=== PATIENT | female | born 1985 ===

== ENCOUNTER → 2017-11-18 | Outpatient (CLI) | payer OTHER ==
[2017-11-18 13:18] LABS: BASO % 0.2 %; BASO ABS # 0.01 K/uL (0-0.2); EOS % 0.5 %; EOS ABS # 0.03 K/uL (0-0.5); HEMATOCRIT 36.3 % (37-47); HEMOGLOBIN 12.3 g/dL (12.0-16.0); IG# 0.02 K/uL (0.00-0.02); LYMPH % 18.2 %; MEAN CELL VOLUME 87.9 fL (80-100); MEAN CORPUSCULAR HEMOGLOBIN 29.8 pg (25-34); MEAN CORPUSCULAR HGB CONC 33.9 g/dl (32-36); MEAN PLATELET VOLUME 9.7 fL (7.4-10.4); MONO % 7.7 %; MONO ABS # 0.51 K/uL (0.11-0.59); NEUT % 73.1 %; NEUT ABS # 4.84 K/uL (1.4-6.5); PLATELET COUNT 267 K/uL (130-400); RED CELL DISTRIBUTION WIDTH CV 13.4 % (11.5-14.5); RED CELL DISTRIBUTION WIDTH SD 42.9 fL (36.4-46.3); WHITE BLOOD COUNT 6.61 K/uL (4.8-10.8)
== END | disposition home or self-care (01) ==
LOC: C.LAB1850 10:40
PROVIDERS: ATTEND Obstetrics & Gynecology
DX: Z34.01 Encounter for supervision of normal first pregnancy, first trimester (principal)

== ENCOUNTER 2018-05-24 03:41 | Inpatient (IN) ==
[2018-05-24] MEDS ORDERED: LACTATED RINGER'S 1,000 ML IV PRN ×5 (06:16→10:46)
[2018-05-24 06:32] LABS: Hematocrit (blood only) 37.8 % (37-47); Hemoglobin 12.7 g/dL (12.0-16.0); Mean Corpuscular Volume 89.4 fL (80-100); Mean Platelet Volume 10.3 fL (7.4-10.4); Platelet Count 203 K/uL (130-400); RDW Coefficient of Variation 14.1 % (11.5-14.5); RDW Standard Deviation 46.2 fL (36.4-46.3); Red Blood Count 4.23 M/uL (4.2-5.4); White Blood Count 9.46 K/uL (4.8-10.8)
[2018-05-24 06:33] LABS: Mean Corpuscular Hgb Conc 33.6 g/dL (32-36)
[2018-05-24] MEDS ORDERED: OXYTOCIN 30 UNITS/500 ML BAG IV PRN ×2 (07:00→18:13)
--- NOTE | 2018-05-24 07:05 | History & Physical Report ---
Date of Service May 24, 2018 Assessment & Plan (1) Premature rupture of membranes: - heart rate tracing reassuring -Patient observed for 4 hours with no regular contractions -We will begin Pitocin per induction protocol -All questions answered to the patient. -Anticipate vaginal delivery History of Present Illness Chief Complaint: Rupture of membranes Primary Care Provider: NO PCP The patient is a 32-year-old 1 para 0 with an EDC of 25 May by dates and first trimester ultrasound, who is admitted at 39+ weeks gestational age with spontaneous rupture membranes. Patient states membranes ruptured approximately 0300 hrs., she described the fluid is clear. She has been having some mild irregular contractions since the rupture. The patient has had a benign course. Her blood type is O+, antibody negative, rubella immune, hepatitis B negative, she had negative cell free DNA screening, she had a normal 1 hour Glucola at 16 weeks, an elevated value at 28 weeks with a normal 2-hour glucose tolerance test, and a negative third trimester beta strep culture. Allergies Allergy/AdvReac Type Severity Reaction Status Date / Time No Known Allergies Allergy Verified 05/24/18 06:18 Home Medications Home Medications Medication Instructions Recorded Confirmed Type 1 cap PO DAILY 05/24/18 05/24/18 History ferrous sulfate [iron] 325 mg PO DAILY 05/24/18 05/24/18 History Patient History Medical History No known health problems Surgical History No history of previous surgery Physical Exam Vital Signs (Past 24 Hours): Last Vital Signs Temp 37.1 C 05/24/18 05:00 Resp 18 05/24/18 05:00 Constitutional: WD/WN, vitals as above Respiratory: Auscultation: lungs clear to auscultation bilaterally Cardiovascular: RRR, no murmur, no edema Extremities: no calf tenderness Gastrointestinal (Abdomen): Gravid, vertex, positive heart tones, estima valeria weight of 6-1/2 pounds Genitourinary: Manual OB Exam: + cervical dilation 5 cm, + cervical effacement 80%, + station -2 and + amniotic fluid clear OB Exam Monitor Tracing: + external FHT monitor used and + category I
[2018-05-24] MEDS: LACTATED RINGER'S 1,000 ML IV SCH ×2 (07:29→10:19)
[2018-05-24] MEDS ORDERED: fentaNYL citrate 100 MCG/2 ML VIAL ONE (09:35)
[2018-05-24] MEDS ORDERED: ePHEDrine sulfate 50 MG/ML AMP ONE (09:35)
[2018-05-24] MEDS ORDERED: BUPIVACAINE 0.25% 30 ML VIAL ONE (09:35)
[2018-05-24] MEDS ORDERED: fentaNYL 2MCG/ML ROPIV 1.25MG/ML 100 ML BAG EPI ONE (09:36)
[2018-05-24] MEDS ORDERED: ePHEDrine sulfate 50 MG/ML AMP IV PRN (10:46)
[2018-05-24] MEDS ORDERED: NALOXONE HCL 0.4 MG/1 ML VIAL/CARP IV PRN (10:46)
[2018-05-24] MEDS ORDERED: fentaNYL 2MCG/ML ROPIV 1.25MG/ML 100 ML BAG EPI PRN (10:46)
[2018-05-24] MEDS ORDERED: ONDANSETRON INJ 2 MG/ML 2 ML VIAL IV PRN (10:46)
--- NOTE | 2018-05-24 10:53 | Anesthesiology Consultation ---
Date of Service May 24, 2018 Assessment & Plan (1) Encounter for pre-operative examination: Chart Review Chart Review: Acceptable Risk for Surgery and Acceptable Risk for Labor Epidural History Height/Weight Height: 5 ft 2 in Weight: 68 kg Allergies Allergy/AdvReac Type Severity Reaction Status Date / Time No Known Allergies Allergy Verified 05/24/18 06:18 Medications Home Medications Medication Instructions Recorded Confirmed Last Taken 1 cap PO DAILY 05/24/18 05/24/18 05/23/18 08:00 ferrous sulfate [iron] 325 mg PO DAILY 05/24/18 05/24/18 05/23/18 08:00 Active Medications Generic Name Dose Route Start Last Admin Trade Name Freq PRN Reason Stop Dose Admin Lactated Ringer's 1,000 mls @ 125 mls/hr 05/24/18 06:30 05/24/18 09:30 Lr IV 05/26/18 06:29 999 mls/hr .Q8H RAFFY Infusion Oxytocin 30 units in 500 mls @ 6 mls/hr 05/24/18 07:00 05/24/18 08:56 Pitocin IV 05/26/18 06:59 0.36 units/hr .Q24H PRN 6 mls/hr Labor Induction/Augmentation Titration Protocol 0.36 UNITS/HR Past Medical History Medical History Anxiety Past Surgical History Surgical History No history of previous surgery Social History Hx Alcohol Use: No Physical Exam Vital Signs Last Vital Signs Temp 36.6 C 05/24/18 09:00 Pulse 100 H 05/24/18 10:04 Resp 20 05/24/18 09:30 BP 123/58 L 05/24/18 10:01 Pulse Ox 98 05/24/18 10:04 Testing Laboratory Results 05/24/18 05:30
--- NOTE | 2018-05-24 10:53 | Anesthesiology Consultation ---
Date of Service May 24, 2018 Assessment & Plan (1) Encounter for pre-operative examination: Chart Review Chart Review: Acceptable Risk for Surgery and Acceptable Risk for Labor Epidural History Height/Weight Height: 5 ft 2 in Weight: 68 kg Allergies Allergy/AdvReac Type Severity Reaction Status Date / Time No Known Allergies Allergy Verified 05/24/18 06:18 Medications Home Medications Medication Instructions Recorded Confirmed Last Taken 1 cap PO DAILY 05/24/18 05/24/18 05/23/18 08:00 ferrous sulfate [iron] 325 mg PO DAILY 05/24/18 05/24/18 05/23/18 08:00 Active Medications Generic Name Dose Route Start Last Admin Trade Name Freq PRN Reason Stop Dose Admin Lactated Ringer's 1,000 mls @ 125 mls/hr 05/24/18 06:30 05/24/18 09:30 Lr IV 05/26/18 06:29 999 mls/hr .Q8H RAFFY Infusion Oxytocin 30 units in 500 mls @ 6 mls/hr 05/24/18 07:00 05/24/18 08:56 Pitocin IV 05/26/18 06:59 0.36 units/hr .Q24H PRN 6 mls/hr Labor Induction/Augmentation Titration Protocol 0.36 UNITS/HR Past Medical History Medical History Anxiety Past Surgical History Surgical History No history of previous surgery Social History Hx Alcohol Use: No Physical Exam Vital Signs Last Vital Signs Temp 36.6 C 05/24/18 09:00 Pulse 91 H 05/24/18 08:56 Resp 20 05/24/18 09:30 BP 120/69 05/24/18 08:56 Testing Laboratory Results 05/24/18 05:30
--- NOTE | 2018-05-24 10:54 | Communication Note ---
Date of Service: May 24, 2018 Brief visit with patient. Anesthesiologist was in room and plan for epidural being made. Patient is standing at bedside breathing through contraction. FHT Cat 1 and toco Q2min. Will return to reassess cervix and plan further care once patient is comfortable.
--- NOTE | 2018-05-24 11:02 | Anesthesiology Consultation ---
Date of Service May 24, 2018 Assessment & Plan (1) Encounter for pre-operative examination: Chart Review Chart Review: Acceptable Risk for Surgery and Acceptable Risk for Labor Epidural History Height/Weight Height: 5 ft 2 in Weight: 68 kg Allergies Allergy/AdvReac Type Severity Reaction Status Date / Time No Known Allergies Allergy Verified 05/24/18 06:18 Medications Home Medications Medication Instructions Recorded Confirmed Last Taken 1 cap PO DAILY 05/24/18 05/24/18 05/23/18 08:00 ferrous sulfate [iron] 325 mg PO DAILY 05/24/18 05/24/18 05/23/18 08:00 Active Medications Generic Name Dose Route Start Last Admin Trade Name Freq PRN Reason Stop Dose Admin Lactated Ringer's 1,000 mls @ 125 mls/hr 05/24/18 06:30 05/24/18 10:19 Lr IV 05/26/18 06:29 125 mls/hr .Q8H RAFFY Administration Oxytocin 30 units in 500 mls @ 6 mls/hr 05/24/18 07:00 05/24/18 08:56 Pitocin IV 05/26/18 06:59 0.36 units/hr .Q24H PRN 6 mls/hr Labor Induction/Augmentation Titration Protocol 0.36 UNITS/HR Past Medical History Medical History Anxiety Past Surgical History Surgical History No history of previous surgery Social History Hx Alcohol Use: No Physical Exam Vital Signs Last Vital Signs Temp 36.6 C 05/24/18 09:00 Pulse 101 H 05/24/18 10:40 Resp 20 05/24/18 09:30 BP 110/64 05/24/18 10:40 Pulse Ox 98 05/24/18 10:39 Testing Laboratory Results 05/24/18 05:30
--- NOTE | 2018-05-24 11:09 | Anesthesiology Consultation ---
Date of Service May 24, 2018 Assessment & Plan (1) Encounter for pre-operative examination: Chart Review Chart Review: Acceptable Risk for Surgery and Acceptable Risk for Labor Epidural ASA ASA2 Proposed Anesthesia Anesthesia Type: CSE NPO Last Intake of Fluids Comment: N/a Date Last Intake of Solids: 05/23/18 History Height/Weight Height: 5 ft 2 in Weight: 68 kg Allergies Allergy/AdvReac Type Severity Reaction Status Date / Time No Known Allergies Allergy Verified 05/24/18 06:18 Medications Home Medications Medication Instructions Recorded Confirmed Last Taken 1 cap PO DAILY 05/24/18 05/24/18 05/23/18 08:00 ferrous sulfate [iron] 325 mg PO DAILY 05/24/18 05/24/18 05/23/18 08:00 Active Medications Generic Name Dose Route Start Last Admin Trade Name Freq PRN Reason Stop Dose Admin Lactated Ringer's 1,000 mls @ 125 mls/hr 05/24/18 06:30 05/24/18 10:19 Lr IV 05/26/18 06:29 125 mls/hr .Q8H RAFFY Administration Oxytocin 30 units in 500 mls @ 6 mls/hr 05/24/18 07:00 05/24/18 08:56 Pitocin IV 05/26/18 06:59 0.36 units/hr .Q24H PRN 6 mls/hr Labor Induction/Augmentation Titration Protocol 0.36 UNITS/HR Past Medical History Medical History Anxiety Past Surgical History Surgical History No history of previous surgery Past Anesthesia History No Hx of Anesthesia Complications History of PONV No Motion Sickness Screening History of Motion Sickness: No Social History Smoking Status: Never smoker Hx Alcohol Use: No Hx Substance Use: No Exercise / Class Metabolic Activity III < 4 Walking/Shop/Light housework Review of Systems Respiratory: no problem reported Cardiovascular: no problem reported Physical Exam Vital Signs Last Vital Signs Temp 36.6 C 05/24/18 09:00 Pulse 82 05/24/18 10:45 Resp 20 05/24/18 09:30 BP 95/51 L 05/24/18 10:45 Pulse Ox 97 05/24/18 10:44 Neck normal visual inspection Respiratory normal respiratory effort Auscultation: lungs clear to auscultation bilaterally Cardiovascular Rate/Rhythm: regular rate and regular rhythm Testing Laboratory Results 05/24/18 05:30
--- NOTE | 2018-05-24 14:06 | Labor Progress Brief Note ---
Date of Service May 24, 2018 Subjective Comfortable with epidural. No urge to push. Assessment & Plan (1) Supervision of normal intrauterine in primigravida: Patient with PROM earlier this morning, and labor augmented with pitocin. Now complete dilation. FHT Cat 1. Bladder emptied for 400cc clear yellow during exam. Will allow labor down / onset of pelvic pressure and urge, then begin second stage. Trimester: third trimester Qualified Code(s): Z34.03 - Encounter for supervision of normal first , third trimester Physical Exam Vital Signs (Past 24 Hours): Last Vital Signs Temp 37.0 C 05/24/18 13:01 Pulse 74 05/24/18 14:02 Resp 18 05/24/18 13:00 BP 117/63 05/24/18 14:02 Pulse Ox 99 05/24/18 13:59 Physical Exam: /+1
--- NOTE | 2018-05-24 17:59 | Procedure Note ---
Vaginal Delivery Summary Date of Service May 24, 2018 Patient pushed to deliver a viable male in GISELA position with a compound L arm. Shoulders and remainder of baby delivered without any difficulty or delay. Infant immediately made respiratory effort and moved all four extremities. Cord was doubly clamped. FOB cut cord. Placenta then delivered s/i/3vC. L labia minora had a small tear which was reapproximated with 4-0 vicryl. Perineum, vagina and cervix were without lacerations. Lochia was minimal and fundus firm immediately after delivery.
[2018-05-24] MEDS ORDERED: SUPERCREAM 0.870% 15 GM JAR EXT PRN (18:13)
[2018-05-24] MEDS ORDERED: BENZOCAINE 20% AER SPR 82.5 GM CAN EXT PRN (18:13)
[2018-05-24] MEDS ORDERED: LACTATED RINGER'S 1,000 ML IV SCH (18:13)
[2018-05-24] MEDS ORDERED: ACETAMINOPHEN 325 MG TAB PO PRN (18:13)
[2018-05-24] MEDS ORDERED: HYDROCORTISONE ACETATE 25 MG SUPP PR PRN (18:13)
[2018-05-24] MEDS ORDERED: IBUPROFEN 600 MG TAB PO PRN (18:13)
[2018-05-24] MEDS ORDERED: BISACODYL 10 MG SUPP PR PRN (18:13)
[2018-05-24] MEDS ORDERED: DIPHTHERIA/TETANUS/PERTUSSIS 0.5 ML SYR/VIAL IM ONE (18:13)
[2018-05-24] MEDS ORDERED: OXYCODONE/ACETAMINOPHEN 5mg/325mg TAB PO PRN (18:13)
--- NOTE | 2018-05-24 19:01 | Anesthesia Procedure Note ---
Date of Service May 24, 2018 Anesthesia Post Epidural Note Vital Signs Vital Signs: Temp Pulse Resp BP Pulse Ox 36.8 C 94 H 18 97/54 L 99 05/24/18 17:00 05/24/18 18:39 05/24/18 18:40 05/24/18 18:39 05/24/18 17:39 Notes Mental Status: alert / awake / arousable and participated in evaluation Nausea / Vomiting: adequately controlled Pain: adequately controlled Airway Patency, RR, SpO2: stable & adequate BP & HR: stable & adequate Hydration State: stable & adequate Neuraxial Anesthesia: was administered and sensory block is resolving Anesthetic Complications: no major complications apparent Epidural: Removed without complications and With tip intact
[2018-05-24] MEDS: DOCUSATE SODIUM 100 MG CAP PO SCH (21:07)
[2018-05-25 06:15] LABS: Hematocrit (blood only) 34.4 % (37-47); Hemoglobin 11.3 g/dL (12.0-16.0); Mean Corpuscular Hgb Conc 32.8 g/dL (32-36); Mean Corpuscular Volume 89.4 fL (80-100); Mean Platelet Volume 9.8 fL (7.4-10.4); Platelet Count 184 K/uL (130-400); RDW Coefficient of Variation 14.2 % (11.5-14.5); RDW Standard Deviation 46.7 fL (36.4-46.3); Red Blood Count 3.85 M/uL (4.2-5.4); White Blood Count 14.47 K/uL (4.8-10.8)
--- NOTE | 2018-05-25 06:43 | Obstetrical Progress Note ---
Date of Service May 25, 2018 Assessment & Plan (1) Status post vaginal delivery: Patient is a 32 year old PPD 1 s/p -Vital signs: bp 90/60 is a tad low, she is asyx and her base line pressures seem low continue to monitor otherwise wnl T36.7, -Hemoglobin is 11.3 down from 12.7 on admission. no si/sx of anemia. -Pt is doing clinically well -Continue to encourage ambulation as tolerated, Monitor and control pain with motrin prn, Continue diet as tolerated. -Continue to support and encourage breast feeding -Routine care Supervising Physician Co-Signing Physician Notes I have examined the patient and agree with the resident note above. Subjective Patient swaddling baby with mom at the bedside this morning. Patient is tolerating her diet, ambulating well, passing gas and voiding, still no bm. Reports moderate lochia. Denies H/A, chest pain, palpitations and uti syx. No concerns at this time Physical Exam Vital Signs (Past 24 Hours): Last Vital Signs Temp 36.7 C 05/25/18 04:00 Pulse 88 05/25/18 04:00 Resp 16 05/25/18 04:00 BP 90/60 L 05/25/18 04:00 Pulse Ox 97 05/25/18 04:00 Constitutional: WD/WN, vitals as above Eyes: normal visual dumas by confrontation Respiratory: normal respiratory effort, lungs clear to auscultation Cardiovascular: RRR, no murmur, no edema Extremities: + pedal edema (1+); no calf tenderness Gastrointestinal (Abdomen): normal bowel sounds, soft, nontender, no hepatosplenomegaly Skin: no rashes, warm and dry Results & Data Laboratory Results 05/25/18 05/24/18 Range/Units 05:47 06:19 WBC 14.47 H (4.8-10.8) K/uL RBC 3.85 L (4.2-5.4) M/uL Hgb 11.3 L (12.0-16.0) g/dL Hct 34.4 L (37-47) % MCV 89.4 (80-100) fL MCH 29.4 (25-34) pg MCHC 32.8 (32-36) g/dL RDW Std Deviation 46.7 H (36.4-46.3) fL RDW Coeff of Evelin 14.2 (11.5-14.5) % Plt Count 184 (130-400) K/uL MPV 9.8 (7.4-10.4) fL Absolute Nucleated RBC 0.00 (0-0) K/uL Nucleated RBC % (auto) 0.0 % Amniotic Protein POS Medications Administered Current Inpatient Medications Acetaminophen (Tylenol) 650 mg PO Q6H PRN PRN Reason: Pain/IRWIN/Fever Stop: 06/23/18 18:12 Benzocaine (Dermoplast Pain Relieving [place]) 1 appln EXT PRN PRN PRN Reason: Perineal Discomfort Stop: 06/23/18 18:12 Last Admin: 05/24/18 20:17 Dose: 82.5 appln Documented by: Bisacodyl (Dulcolax) 5 mg PO 1999 [facility] Stop: 05/25/18 20:01 Bisacodyl (Dulcolax) 10 mg [place] DAILY PRN PRN Reason: No BM on 2nd post- day Stop: 06/23/18 18:12 Cocaine HCl (Supercream 0.870%) 1 gm EXT BID PRN PRN Reason: Hemorrhoidal Inflammation Stop: 06/07/18 18:12 Last Admin: 05/24/18 20:18 Dose: 1 tube Documented by: Docusate Sodium (Colace) 100 mg PO BID [facility] Stop: 06/23/18 20:59 Last Admin: 05/24/18 21:07 Dose: 100 mg Documented by: Hydrocortisone (Anusol Hc) 25 mg [place] BID PRN PRN Reason: Hemorrhoidal Inflammation Stop: 06/23/18 18:12 Lactated Ringer's (Lr) 1,000 mls @ 125 mls/hr IV .Q8H [facility] Stop: 06/23/18 18:12 Oxytocin (Pitocin) 30 units in 500 mls @ 333.333 mls/hr IV .Q1H30M PRN; Protocol PRN Reason: BLEEDING CONTROL Stop: 06/23/18 18:12 Ibuprofen (Motrin) 600 mg PO Q4H PRN PRN Reason: Pain/IRWIN/Cramping/Fever Stop: 06/23/18 18:12 Oxycodone/Acetaminophen (Percocet 5mg/325mg) 1 tab PO Q4H PRN PRN Reason: Pain not relieved by... Stop: 06/07/18 18:12 Prenat Multivit/Childcare Director/Iron/Folic Ac ( Vitamin) 1 tab PO QAM [facility] Stop: 06/24/18 08:59 Resident Activity Tracking Resident Involvement: Resident Care Provided Care Provided: Adult Hospital Medicine
[2018-05-25] MEDS: PRENATAL VITAMIN 1 TAB PO SCH (09:33)
[2018-05-25] MEDS: DOCUSATE SODIUM 100 MG CAP PO SCH ×2 (09:33→19:50)
[2018-05-25] MEDS ORDERED: BISACODYL 5 MG TABEC PO SCH (20:00)
--- NOTE | 2018-05-26 06:52 | Obstetrical Progress Note ---
Date of Service May 26, 2018 Assessment & Plan (1) Status post vaginal delivery: Patient is a 32 year old PPD 1 s/p -Vital signs WNL bp 109/67 T36.5 -Hemoglobin is 11.3 down from 12.7 on admission. no si/sx of anemia. -Pt is doing clinically well -Continue to encourage ambulation as tolerated, Monitor and control pain with motrin prn, Continue diet as tolerated. -Continue to support and encourage breast feeding -Counseled patient on discharge instructions including Vaginal bleeding, fevers, followup, lifting restrictions, breast feeding, vitamins, and nothing in the vagina for 6 weeks. Pt was agreeable -Plan for d/c today Supervising Physician Co-Signing Physician Notes Resident Physician Supervision Note: I interviewed and examined the patient. Discussed with Dr. Irvin Doan and agree with findings and plan as documented in the note. Any exceptions or clarifications are listed here: [None] Documented By: Babita Hummel MD, FACOG Subjective Patient just finished breast feeding baby this morning when I arrived, her mother was sleeping at the bedside. Pt is cocerned about the smell of her baby's flatus, I deferred to pediatrics. Patient continues to tolerate her diet, ambulating well, passing gas and voiding, still no bm. Reports decreasing lochia. Denies H/A, chest pain, palpitations and uti syx. No concerns at this time Physical Exam Vital Signs (Past 24 Hours): Last Vital Signs Temp 36.5 C 05/25/18 23:45 Pulse 83 05/25/18 23:45 Resp 16 05/25/18 23:45 BP 109/67 05/25/18 23:45 Pulse Ox 98 05/25/18 23:45 Constitutional: WD/WN, vitals as above Eyes: normal visual dumas by confrontation Respiratory: normal respiratory effort, lungs clear to auscultation Cardiovascular: RRR, no murmur, no edema Extremities: no calf tenderness and no pedal edema (1+) Gastrointestinal (Abdomen): normal bowel sounds, soft, nontender, no hepatosplenomegaly (uterus firm and below the umbilicus) Skin: no rashes, warm and dry Results & Data Medications Administered Current Inpatient Medications Acetaminophen (Tylenol) 650 mg PO Q6H PRN PRN Reason: Pain/IRWIN/Fever Stop: 06/23/18 18:12 Benzocaine (Dermoplast Pain Relieving [place]) 1 appln EXT PRN PRN PRN Reason: Perineal Discomfort Stop: 06/23/18 18:12 Last Admin: 05/24/18 20:17 Dose: 82.5 appln Documented by: Bisacodyl (Dulcolax) 10 mg [place] DAILY PRN PRN Reason: No BM on 2nd post- day Stop: 06/23/18 18:12 Cocaine HCl (Supercream 0.870%) 1 gm EXT BID PRN PRN Reason: Hemorrhoidal Inflammation Stop: 06/07/18 18:12 Last Admin: 05/24/18 20:18 Dose: 1 tube Documented by: Docusate Sodium (Colace) 100 mg PO BID [facility] Stop: 06/23/18 20:59 Last Admin: 05/25/18 19:50 Dose: 100 mg Documented by: Hydrocortisone (Anusol Hc) 25 mg [place] BID PRN PRN Reason: Hemorrhoidal Inflammation Stop: 06/23/18 18:12 Lactated Ringer's (Lr) 1,000 mls @ 125 mls/hr IV .Q8H RAFFY Stop: 06/23/18 18:12 Oxytocin (Pitocin) 30 units in 500 mls @ 333.333 mls/hr IV .Q1H30M PRN; Protocol PRN Reason: BLEEDING CONTROL Stop: 06/23/18 18:12 Ibuprofen (Motrin) 600 mg PO Q4H PRN PRN Reason: Pain/IRWIN/Cramping/Fever Stop: 06/23/18 18:12 Oxycodone/Acetaminophen (Percocet 5mg/325mg) 1 tab PO Q4H PRN PRN Reason: Pain not relieved by... Stop: 06/07/18 18:12 Prenat Multivit/[place]/Iron/Folic Ac ( Vitamin) 1 tab PO QAM [facility] Stop: 06/24/18 08:59 Last Admin: 05/25/18 09:33 Dose: 1 tab Documented by: Resident Activity Tracking Resident Involvement: Resident Care Provided Care Provided: Adult Hospital Medicine
[2018-05-26] MEDS: PRENATAL VITAMIN 1 TAB PO SCH (09:10)
[2018-05-26] MEDS: DOCUSATE SODIUM 100 MG CAP PO SCH (09:11)
== END 2018-05-26 13:50 | disposition home or self-care (01) | DRG 807 ==
LOC: 4S1 03:41 → OPB 03:41 → 4S1 06:16 → 4S2 20:43